=== PATIENT | male | born 1985 | race Asian ===

== ENCOUNTER 2017-02-14 11:10 | Inpatient (IN) | payer BC ==
[~2017-02-14] VITALS: Ht 165.1 cm; Wt 74.4 kg
[2017-02-14 11:10] VITALS: BP_SYST 145
--- NOTE | 2017-02-14 11:10 | NUR ---
Pt BIB ALS and placed to ER bed 2. Report given to ADAM Barron.
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
--- NOTE | 2017-02-14 11:12 | NUR ---
Seizure pads placed to side rails, full seizure precautions in place, continous monitoring from nurses station.
--- NOTE | 2017-02-14 11:13 | NUR ---
Dr Morris at bedside examining patient
--- NOTE | 2017-02-14 11:22 | NUR ---
change management specialist Keith faxed DMV reporting form for new lapse of conciousness, copy of photo ID faxed with. Addendum: 02/14/17 at 1124 by CONNIE Confirmation letter received.
--- NOTE | 2017-02-14 11:30 | NUR ---
Pt having a seizure activity at this time lasting 45 seconds, VSS, RT at bedside, pt suctioned, well tolerated ,
--- NOTE | 2017-02-14 11:35 | NUR ---
Physician Alexandra order soft restrains given to Lexx upper and lower extremities type restraints to prevent injury . Restraints placed with quick-release ties to bed frame. Will monitor patient frequently.
[2017-02-14] MEDS ORDERED: levETIRAcetam 1,000 MG IV BAG 100 ML IV ONE (11:45)
[2017-02-14] MEDS ORDERED: LORazepam 2 MG/ML VIAL IVP ONE (11:45)
[2017-02-14 11:47] LABS: BASOPHILS # (AUTO) 0.1 K/uL (0.0-0.2); BASOPHILS % (AUTO) 0.8 % (0.0-2.0); EOSINOPHILS # (AUTO) 0.3 K/uL (0.0-0.4); EOSINOPHILS % (AUTO) 2.4 % (0.0-4.0); HEMATOCRIT 47.4 % (36-54); HEMOGLOBIN 15.8 g/dL (14.0-18.0); LYMPHOCYTES # (AUTO) 5.4 K/uL (1.0-5.5); LYMPHOCYTES % (AUTO) 46.6 % (20.5-51.5); MEAN CORPUSCULAR HEMOGLOBIN 30 pg (27-31); MEAN CORPUSCULAR HGB CONC 33 % (32-36); MEAN CORPUSCULAR VOLUME 89 fL (79.0-98.0); MONOCYTES # (AUTO) 0.8 K/uL (0.0-1.0); MONOCYTES % (AUTO) 6.5 % (1.7-9.3); NEUTROPHILS # (AUTO) 5.1 K/uL (1.8-7.7); NEUTROPHILS % (AUTO) 43.7 % (40.0-70.0); PLATELET COUNT (AUTO) 347 K/uL (130-430); RED BLOOD CELL COUNT(AUTO) 5.33 MIL/uL (4.2-6.2); RED CELL DISTRIBUTION WIDTH 12.7 % (9.0-15.0); WHITE BLOOD COUNT (AUTO) 11.7 K/uL (4.8-10.8)
[2017-02-14] MEDS ORDERED: LORazepam 2 MG/ML VIAL (FOR ER USE) ONE ×2 (11:48→12:05)
[2017-02-14 11:50] LABS: CALCIUM 8.7 mg/dL (8.4-11.0); CREATININE 1.51 mg/dL (0.55-1.30); POTASSIUM 3.5 mmol/L (3.5-5.1)
[2017-02-14] MEDS ORDERED: LORazepam 2 MG/ML VIAL (FOR ER USE) IVP ONE (12:00)
[2017-02-14] MEDS ORDERED: KETAMINE HCL 500 MG/10 ML VIAL IM ONE (12:30)
--- NOTE | 2017-02-14 12:40 | NUR ---
Pt returned from CT scan tolerated well.Continuing to monitor. No seizure activity noted.
--- NOTE | 2017-02-14 13:56 | NUR ---
Pt resting at this time, VS WNL, family at the bedside
--- NOTE | 2017-02-14 14:05 | NUR ---
Pt AAOx4, restraints removed by Dr. arreola
--- NOTE | 2017-02-14 14:30 | NUR ---
Pt's family report they don's have pt's medication list, pt unsure if he took his seizures medications , unable to recall exact name and dose at this time, per family will bring medication list from home later.
[2017-02-14] MEDS ORDERED: LORazepam 2 MG/ML VIAL IM PRN (15:30)
--- NOTE | 2017-02-14 15:41 | NUR ---
ADMIT NOTE Received pt from ER to the floor with a diagnosis of recurrent seizures. Admission process initiated. patient oriented to pain management, safety and call light-teach back done.
[2017-02-14 15:48] VITALS: BP_SYST 105
[2017-02-14 15:53] LABS: BILIRUBIN,URINE NEGATIVE (NEGATIVE); BLOOD, URINE 1+ (NEGATIVE); CLARITY/URINE SL HAZY (CLEAR); COLOR,URINE YELLOW (YELLOW); GLUCOSE,URINE NEGATIVE (NEGATIVE); KETONES,URINE NEGATIVE (NEGATIVE); LEUKOCYTE ESTERASE ,URINE NEGATIVE (NEGATIVE); NITRITE, URINE NEGATIVE (NEGATIVE); PROTEIN URINE 1+ (NEGATIVE); UROBILINOGEN,URINE 0.2 (0.2-1.0)
--- NOTE | 2017-02-14 15:55 | NUR ---
Patient will be admitted to care of Dr Salas. Admitted to Tele unit. Will go to room 121. Belongings list completed. Summary report printed. Report given to admitting RN.
[2017-02-14 16:00] VITALS: BP_SYST 105
--- NOTE | 2017-02-14 16:17 | NUR ---
REPORT RECEIVED FROM ADAM SANDHU. PATIENT IS ASLEEP IN BED. ASSESSED PATIENT. VITALS WNL, LUNGS CLEAR. PULSES GOOD.
[2017-02-14 16:29] LABS: BARBITURATE, URINE NEGATIVE (NEG <=200); BENZODIAZEPINE, URINE NEGATIVE (NEG <=150); CANNABINOID, URINE NEGATIVE (NEG <=50); COCAINE, URINE NEGATIVE (NEG <=150); METHAMPHETAMINES SCREEN,URINE NEGATIVE (NEG <=500); OPIATE, URINE NEGATIVE (NEG <=100); PHENCYCLIDINE SCREEN,URINE NEGATIVE (NEG <=25); UR TRICYCLIC ANTIDEPRESSANTS NEGATIVE (NEG <=300); URINE AMPHETAMINE NEGATIVE (NEG <=500); URINE METHADONE NEGATIVE (NEG <=200); URINE OXYCODONE SCREEN NEGATIVE (NEG <=100); URINE PROPOXYPHENE SCREEN NEGATIVE (NEG <=300)
[2017-02-14 16:34] LABS: BACTERIA,URINE FEW /HPF (None Seen); RBC,URINE 0-3 /HPF (0-3); WBC,URINE 0-3 /HPF (0-3)
[2017-02-14 16:35] LABS: COARSE GRANULAR CASTS,URINE 0-10 /LPF (None Seen); FINE GRANULAR CASTS,URINE 0-10 /LPF (None Seen); MUCUS,URINE 1+ /LPF (None Seen); URINE AMORPHOUS URATE 2+ /HPF (None Seen)
[2017-02-14] MEDS ORDERED: TEMAZEPAM 15 MG CAPSULE PO PRN (17:15)
[2017-02-14] MEDS ORDERED: DEXTROSE 50% JECT 50 ML DISP.SYRIN IVP PRN (17:15)
[2017-02-14] MEDS ORDERED: INSULIN REGULAR, HUMAN 100 UNITS/ML, 10 ML VIAL (novoLIN R) SUBCUT PRN (17:15)
[2017-02-14] MEDS ORDERED: ACETAMINOPHEN 325 MG TABLET PO PRN (17:15)
[2017-02-14] MEDS ORDERED: LORazepam 2 MG/ML VIAL IV PRN (17:30)
--- NOTE | 2017-02-14 17:42 | NUR ---
CONSULTATION CALLED: REASON FOR CONSULT: SEIZURES WAS CONSULT CALLED: YES PERSON WHO WAS CALLED: [employer] PENETRATION TESTER DR: MANDO MUNOZ
[2017-02-14] MEDS: LR 1,000 ML IV SCH (17:47)
--- NOTE | 2017-02-14 17:47 | NUR ---
DR STAPLETON IN TO SEE PATIENT. NEW ORDERS WRITTEN. PATIENT REMAINS LETHARGIC. PATIENT DID TELL ME HE HAS HAD SEIZURES SINCE AGE 7, THAT THEY DISCOVERED TWO BENIGN TUMORS AT THAT TIME AND THAT HIS NEUROLOGIST FEELS THE TUMORS ARE NOT RELATED TO THE SEIZURES AND THAT REMOVING THEM MAY CAUSE MORE HARM THAN GOOD. PT STATES HE HAD SEIZURES WHEN HE WAS YOUNG, THEN THEY STOPPED LIKELY DUE TO MEDICATION AND THAT THEY RETURNED IN HIS EARLY 20S. PATIENT DOES NOT RECALL WHERE PREVIOUS CT SCANS WERE PERFORMED, NOR DOES HE RECALL EVER HAVING AN MRI PERFORMED. LR HUNG TO R AC PER DR STAPLETON ORDERS. INFUSING EASILY.
[2017-02-14 20:00] VITALS: BP_SYST 118
--- NOTE | 2017-02-14 20:00 | NUR ---
Initial PM Note Pt was received lying in bed fully AAO x4. Speech is clear and pt is able to make his needs known. No seizure activity noted and no c/o pain or discomfort. Fall, safety and seizure precautions are in place. Side rails are padded. Bed is in the lowest and locked positions. Call light is with pt and bed alarm is on. Pt was instructed to call for assistance as needed and pt verbalized understanding. Skin is warm and dry to touch. No signs or symptoms of hypoglycemia or hyperglycemia noted. IVF of LR is infusing well in LAC at 100ml/hr and no signs of infiltration noted at the IV site. VSS. Pt is afebrile. Will continue to monitor pt.
--- NOTE | 2017-02-14 20:54 | NUR ---
Blood Sugar Accucheck 92 and no Regular Insulin coverage needed. Skin remains warm and dry to touch. Pt is fully AAO x4 and no seizure activity noted.
[2017-02-14] MEDS: TOPIRAMATE 25 MG TABLET(TOPAMAX) PO SCH (21:01)
--- NOTE | 2017-02-14 22:00 | NUR ---
Rounds Pt is resting quietly in bed. No seizure activity noted and no c/o pain or discomfort. Call light is with pt and bed alarm is on. IVF is infusing well in [facility].
--- NOTE | 2017-02-15 | NUR ---
Rounds Pt is sleeping comfortably in bed. No resp distress or seizure activity noted. Fall, safety and seizure precautions are in place. IVF is infusing well in [facility].
[2017-02-15 00:16] VITALS: BP_SYST 107
--- NOTE | 2017-02-15 02:00 | NUR ---
Rounds Pt is resting quietly in bed. Fall and safety precautions are in place.
[2017-02-15 03:40] VITALS: BP_SYST 111
--- NOTE | 2017-02-15 04:00 | NUR ---
Rounds Pt is sleeping without any distress noted. Fall and safety precautions are in place.
[2017-02-15] MEDS: LR 1,000 ML IV SCH ×2 (05:06→13:15)
--- NOTE | 2017-02-15 06:30 | NUR ---
Closing Note Pt is awake and resting comfortably in bed. No c/o pain or discomfort. All pt's needs were attended to. No fall or injury or seizure activity noted this shift. Accucheck 92 this AM and no Insulin coverage needed. Skin remains warm and dry to touch. IVF is infusing well in LAC. Will endorse to day shift nurse.
[2017-02-15 06:38] LABS: ALBUMIN 3.7 g/dL (3.4-4.8); CALCIUM 8.6 mg/dL (8.4-11.0); CREATININE 1.4 mg/dL (0.55-1.30); POTASSIUM 3.5 mmol/L (3.5-5.1); THYROID STIMULATING HORMONE 0.57 uIu/mL (0.34-4.82); TOTAL BILIRUBIN 0.3 mg/dL (0.0-1.0); TOTAL PROTEIN, SERUM 6.4 g/dL (6.4-8.3)
[2017-02-15 06:59] LABS: BASOPHILS % (AUTO) 0.2 % (0.0-2.0); EOSINOPHILS % (AUTO) 0.4 % (0.0-4.0); HEMATOCRIT 40.2 % (36-54); HEMOGLOBIN 13.8 g/dL (14.0-18.0); LYMPHOCYTES # (AUTO) 1.9 K/uL (1.0-5.5); LYMPHOCYTES % (AUTO) 17.4 % (20.5-51.5); MEAN CORPUSCULAR HEMOGLOBIN 31 pg (27-31); MEAN CORPUSCULAR HGB CONC 34 % (32-36); MEAN CORPUSCULAR VOLUME 89 fL (79.0-98.0); MONOCYTES % (AUTO) 9.6 % (1.7-9.3); NEUTROPHILS # (AUTO) 7.9 K/uL (1.8-7.7); NEUTROPHILS % (AUTO) 72.4 % (40.0-70.0); PLATELET COUNT (AUTO) 271 K/uL (130-430); RED BLOOD CELL COUNT(AUTO) 4.51 MIL/uL (4.2-6.2); RED CELL DISTRIBUTION WIDTH 12.2 % (9.0-15.0); WHITE BLOOD COUNT (AUTO) 10.8 K/uL (4.8-10.8)
--- NOTE | 2017-02-15 08:00 | NUR ---
AM NOTES AWAKE, EATING BREAKFAST. DENIES ANY PAIN OR DISCOMFORT. NO SEIZURE ACTIVITY NOTED. IVF INFUSING WELL. SIDE RAILS PADDED. BED ALARM ON. ENC. PT TO CALL AT ALL TIMES NEEDED. CALL LIGHT IN REACH. WILL MONITOR.
[2017-02-15 08:02] VITALS: BP_SYST 134
[2017-02-15] MEDS: TOPIRAMATE 25 MG TABLET(TOPAMAX) PO SCH (08:51)
--- NOTE | 2017-02-15 10:00 | NUR ---
NOTES IN BED, AWAKE, WASHING UP. DENIES ANY PAIN OR DISCOMFORT. NO DISTRESS NOTED. NO SEIZURE ACTIVITY NOTED.
[2017-02-15] MEDS ORDERED: GADOPENTETATE DIMEGLUMINE 15 ML VIAL IV ONE (10:03)
--- NOTE | 2017-02-15 11:20 | NUR ---
MRI PT BACK FROM MRI. NO DISTRESS NOTED.
[2017-02-15 11:48] VITALS: BP_SYST 102
--- NOTE | 2017-02-15 14:22 | NUR ---
NOTES IN BED AWAKE, DENIES ANY PAIN OR DISCOMFORT. D/C IVF ORDERED.
[2017-02-15 16:28] VITALS: BP_SYST 103
--- NOTE | 2017-02-15 18:36 | NUR ---
NOTES IN BED AWAKE, RESTING DENIES ANY PAIN OR DISCOMFORT. NO DISTRESS NOTED. EEG DONE AT BEDSIDE EARLIER. NO SEIZURE NOTED. ALL NEEDS MEET. ENDORSE
[2017-02-15 19:30] VITALS: BP_SYST 98
--- NOTE | 2017-02-15 19:45 | NUR ---
Initial PM Note Pt was received sitting up in bed and eating dinner. Pt is fully AAO x4. Speech is clear and pt is able to make his needs known. No seizure activity noted and no c/o pain or discomfort. Fall, safety and seizure precautions are in place. Side rails are padded. Bed is in the lowest and locked positions. Call light is with pt and bed alarm is on. Pt was instructed to call for assistance as needed and pt verbalized understanding. Skin is warm and dry to touch. No signs or symptoms of hypoglycemia or hyperglycemia noted. Saline lock is patent in LAC and no signs of infiltration noted at the IV site. Will continue to monitor pt.
[2017-02-15] MEDS: TOPIRAMATE 100 MG TABLET(Topamax) PO SCH (21:09)
--- NOTE | 2017-02-15 21:09 | NUR ---
Blood Sugar Accucheck 92 and no Regular Insulin coverage needed. Skin remains warm and dry to touch. Pt was offered HS snack, but pt declined. Pt is fully AAO x4 and no seizure activity noted.
--- NOTE | 2017-02-15 23:00 | NUR ---
Rounds Pt is sleeping comfortably in bed. Call light is with pt and no seizure activity noted.
[2017-02-16 00:36] VITALS: BP_SYST 106
--- NOTE | 2017-02-16 01:00 | NUR ---
Rounds Pt is resting quietly in bed. Call light is with pt.
--- NOTE | 2017-02-16 03:00 | NUR ---
Rounds Pt is sleeping without any distress noted. IVF is infusing well and call light is with pt.
--- NOTE | 2017-02-16 05:00 | NUR ---
Rounds Pt is resting quietly in bed. Fall and safety precautions are in place.
[2017-02-16 06:33] VITALS: BP_SYST 108
--- NOTE | 2017-02-16 06:46 | NUR ---
Closing Note Pt is awake and resting comfortably in bed. No c/o pain or discomfort. All pt's needs were attended to. No fall or injury or seizure activity noted this shift. Accucheck 80 this AM and no Insulin coverage needed. Skin remains warm and dry to touch. Will endorse to day shift nurse.
[2017-02-16 06:49] LABS: CALCIUM 8.8 mg/dL (8.4-11.0); CREATININE 1.08 mg/dL (0.55-1.30); POTASSIUM 3.6 mmol/L (3.5-5.1)
[2017-02-16 08:00] VITALS: BP_SYST 113
--- NOTE | 2017-02-16 08:00 | NUR ---
AM NOTES IN BED, EATING BREAKFAST. DENIES ANY PAIN OR DISCOMFORT. IVL. ON ROOM AIR. V/S STABLE. SAFETY PRECAUTION OBSERVED. ENC. TO CALL FOR HELP AT ALL TIME. CALL LIGHT IN REACH.
[2017-02-16] MEDS: TOPIRAMATE 100 MG TABLET(Topamax) PO SCH (08:38)
--- NOTE | 2017-02-16 10:30 | NUR ---
NOTES RESTING IN BED, DENIES ANY PAIN. NO DISTRESS NOTED.
--- NOTE | 2017-02-16 12:00 | NUR ---
NOTES IN BED, EATING LUNCH. NO DISTRESS NOTED.
[2017-02-16 12:24] VITALS: BP_SYST 131
[2017-02-16 12:46] VITALS: BP_SYST 131
[2017-02-16] MEDS ORDERED: TOPI100T11 PO (12:52)
--- NOTE | 2017-02-16 14:35 | NUR ---
DISCHARGE D/C PT HOME ACCOMPANIED BY FATHER. DENIES ANY PAIN OR DISCOMFORT. NO SEIZURE ACTIVITY NOTED. D/C INSTRUCTION AND PRESCRIPTION GIVEN AND EXPLAIN TO PT. VERBALIZE UNDERSTANDING. ARM BAND AND IVL REMOVED. DISCHARGE
== END 2017-02-16 14:36 | disposition home or self-care (01) | DRG 101 ==
LOC: SED 11:10 → STU 15:30
PROVIDERS: ADMIT Internal Medicine; ATTEND Internal Medicine
DX: G40.909 Epilepsy, unspecified, not intractable, without status epilepticus (principal); N17.9 Acute kidney failure, unspecified; E86.0 Dehydration; Z86.011 Personal history of benign neoplasm of the brain
CPT/HCPCS: 36415; 70450-TC; 70553; 76770; 80048; 80053; 80307; 81000-TC; 82962; 84439; 84443-TC; 85025; 93005; 95816; 96365; 96375; 99291; A9579; J1815; J1953; J2060; J7120